=== PATIENT | female | born 1990 | race Caucasian/White ===

== ENCOUNTER 2018-09-05 16:22 | Emergency (ER) | payer BC, OTHER ==
[2018-09-05 16:28] VITALS: BP 110/74; PULSE 77; TEMP 97.9; BMI 19.9
[2018-09-05 17:15] LABS: BASO % 0.5 % (0-2.0); EOS % 6.1 % (0-4.5); HEMOGLOBIN 13.1 GM/dL (10.7-15.3); LYMPH % 45.9 % (8-40); MCH 30.1 pg (25.7-33.7); MCHC 33.6 g/dl (32.0-36.0); MEAN CELL VOLUME 89.7 fl (80-96); MEAN PLT VOLUME 10.2 fl (7.5-11.1); NEUT % 39.5 % (42.8-82.8); PLATELET COUNT 257 K/MM3 (134-434); RBC 4.35 M/mm3 (3.60-5.2); RDW 13.5 % (11.6-15.6); WHITE BLOOD COUNT 5.4 K/mm3 (4.0-10.0)
--- NOTE | 2018-09-05 17:23 | PDOC ---
History of Present Illness - General Chief Complaint: Vaginal Bleeding Stated Complaint: FIVE WEEKS /ABD CRAMPS Time Seen by Provider: 09/05/18 16:36 History Source: Patient Exam Limitations: No Limitations - History of Present Illness Initial Comments: 09/05/18 17:18 Pt is a previously healthy 28yo F at 5 weeks gestation based on LMP presenting to ED for vaginal bleeding. Pt states she has been spotting all week but started bleeding more heavily yesterday. She used 1 tampon yesterday and today. Endorses cramping. Denies abdominal pain, n/v/d, chest pain, lightheadedness, palpitations, sob. She has not seen her OB for this . She took 3 home tests which were all positive. PMD: none OB: Zeb PMH: none Meds: none Allergies: nkda Past History - Past Medical History Allergies/Adverse Reactions: Allergies Allergy/AdvReac Type Severity Reaction Status Date / Time Shellfish Allergy Severe Hives Verified 09/05/18 16:24 No Known Drug Allergies Allergy Verified 09/05/18 16:24 PEANUTS Allergy Severe Hives Uncoded 09/05/18 16:24 Home Medications: Ambulatory Orders Vit 93/Iron Fum/Folic [ Formula Tablet] 1 tab PO DAILY Anemia: Yes Asthma: Yes Cancer: No Cardiac Disorders: No CVA: No COPD: No CHF: No Dementia: No Diabetes: No GI Disorders: Yes (GERD) Disorders: No HTN: No Hypercholesterolemia: Yes Liver Disease: No Seizures: No Thyroid Disease: No - Surgical History Abdominal Surgery: Yes (CYSTS REMOVED FROM BOTH OVARIES) Appendectomy: No Cardiac Surgery: No Cholecystectomy: No Lung Surgery: No Neurologic Surgery: No Orthopedic Surgery: No - Reproductive History Is Patient Now?: Yes (#): 1 Para: 0 Therapeutic (s) & number: No Tubal Ligation: No Spontaneous : 0 - Immunization History Immunization Up to Date: Yes - Suicide/Smoking/Psychosocial Hx Smoking Status: No Smoking History: Never smoked Have you smoked in the past 12 months: No Number of Cigarettes Smoked Daily: 0 Information on smoking cessation initiated: No Drug/Substance Use Hx: No Substance Use Type: None Hx Substance Use Treatment: No Review of Systems - Review of Systems Constitutional: No: Chills, Fever, Weakness HEENTM: No: Symptoms Reported Respiratory: No: Symptoms reported Cardiac (ROS): No: Symptoms Reported ABD/GI: Yes: See HPI, Abdominal cramping. No: Constipated, Diarrhea, Nausea, Vomiting : Yes: Other (vaginal bleeding). No: Burning, Dysuria, Discharge, Frequency Musculoskeletal: No: Back Pain, Joint Pain, Muscle Weakness Integumentary: No: Symptoms Reported Neurological: No: Symptoms reported *Physical Exam - Vital Signs Last Vital Signs Temp Pulse Resp BP Pulse Ox 97.9 F 77 18 110/74 99 09/05/18 16:26 09/05/18 16:26 09/05/18 16:26 09/05/18 16:09/05/18 16:26 - Physical Exam General Appearance: Yes: Nourished, Appropriately Dressed. No: Apparent Distress HEENT: positive: EOMI, AKIRA, Normal ENT Inspection Neck: positive: Trachea midline, Supple Respiratory/Chest: positive: Lungs Clear, Normal Breath Sounds Cardiovascular: positive: Regular Rhythm, Regular Rate Vascular Pulses: Carotid (R): 2+, Carotid (L): 2+, Dorsalis-Pedis (R): 2+, Doralis-Pedis (L): 2+ Female Pelvic Exam: positive: cervical os closed, vaginal bleeding. negative: CMT, adnexal tenderness Gastrointestinal/Abdominal: positive: Normal Bowel Sounds, Soft. negative: Tender Musculoskeletal: negative: CVA Tenderness Extremity: positive: Normal Capillary Refill, Pelvis Stable Integumentary: positive: Normal Color, Dry, Warm Neurologic: positive: instrumentation and controls technician II-XII NML intact, Fully Oriented, Alert, Normal Mood/ Affect, Normal Response, Motor Strength /5 ED Treatment Course - LABORATORY CBC & Chemistry Diagram: 09/05/18 17:03 09/05/18 17:03 - RADIOLOGY Radiology Studies Ordered: Category Date Time Status TRANSVAGINAL US PREG [US] Stat Ultrasound 09/05/18 16:50 Ordered Medical Decision Making - Medical Decision Making 09/05/18 17:21 Pt is a previously healthy 28yo F at 5 weeks gestation based on LMP presenting to ED for vaginal bleeding. Pt states she has been spotting all week but started bleeding more heavily yesterday. She used 1 tampon yesterday and today. Endorses cramping. Denies abdominal pain, n/v/d, chest pain, lightheadedness, palpitations, sob. She has not seen her OB for this . She took 3 home tests which were all positive. Vitals: wnl PE: blood in vaginal vault, closed os by manual exam, no cmt or adnexal tenderness. ddx includes but not limited to ectopic, (missed v. complete v. incomplete v. inevitable), cyst, menstruation, fibroid -cbc, cmp, ts, ua -tvus labs wnl. Bquant 16. UA negative for infection type and screen pending. US: no evidence of IUP. small simple R ovarian cyst. no adnexal masses. Early IUP v. ectopic v. missed depending on t+S pt may need rhogam. pt informed. given us results. pt agrees to plan and verbalizes understanding. Given return precautions. *DC/Admit/Observation/Transfer Diagnosis at time of Disposition: Vaginal bleeding - Discharge Dispostion Disposition: HOME Condition at time of disposition: Good Decision to Admit order: No - Referrals Referrals: Ketan Carrington MD [Staff Physician] - - Patient Instructions Printed Discharge Instructions: DI for Vaginal Bleeding During Additional Instructions: You were seen in the emergency room today for vaginal bleeding. The ultrasound results show an ovarian cyst. There is no evidence of a gestational sac. This could either be due to the fetus not being visualized or a miscarriage. I recommend coming back to the emergency room in 2 days for repeat blood testing. Come back to the emergency room if bleeding gets worse, you have abdominal pain or if any new concerning symptom develops. Thank you - Post Discharge Activity
--- NOTE | 2018-09-05 17:31 | PDOC ---
Documentation entered by Jacqueline Rosado SCRIBE, acting as scribe for Karo Ellis DO. Karo Ellis DO: This documentation has been prepared by the Alonzo johnston Daisy, SCRIBE, under my direction and personally reviewed by me in its entirety. I confirm that the documentation accurately reflects all work, treatment, procedures, and medical decision making performed by me. Attending Attestation - Resident Resident Name: Evette Parker - ED Attending Attestation I have performed the following: I have examined & evaluated the patient, The case was reviewed & discussed with the resident, I agree w/resident's findings & plan - HPI HPI: 09/05/18 16:53 The patient is a 28 YOF with no PMH who presents with vaginal spotting for the past week. She notes the vaginal spotting worsened yesterday and used one tampon. Patient reports she may be 5 weeks based on LMP. Patient had 3 positive home tests, which was also confirmed by her PCP. This is the patient's first . The patient denies abdominal pain, chest pain, shortness of breath, headache and dizziness. Denies fever, chills, nausea, vomit, diarrhea and constipation. Denies dysuria, frequency, urgency and hematuria. Allergies: NKA Past surgical history: None reported. Social history: No reported alcohol, drug or cigarette use. - Physicial Exam PE: 09/05/18 16:58 ADULT PHYSICAL EXAM Constitutional: Awake, alert, oriented. No acute distress. (+) Pale Cardiovascular: (+) Tachycardic. Regular rhythm. S1, S2 regular. Distal pulses are 2+ and symmetric. Pulmonary/Chest: No evidence of respiratory distress. Clear to auscultation bilaterally No wheezing, rales or rhonchi. Abdominal: Soft and non-distended. There is no tenderness. No rebound, guarding or rigidity. No organomegaly. No palpable masses. Good bowel sounds. Pelvic exam: per Dr. Parker. Musculoskeletal: No edema. No cyanosis. No clubbing. Full range of motion in all extremities. Skin: Skin is warm and dry. Neurological: Alert and oriented to person, place, and time. Cranial nerves II -XII are grossly intact. Psychiatric: Good eye contact. Normal interaction, affect and behavior. - Medical Decision Making 09/05/18 17:28 a/p: 28yo female at around 5 weeks gestation from [facility] 07/31 with vaginal spotting all week followed by heavier flow yesterday and today -denies passing clots -no pelvic cramping -no dysuria -no n/v/d -no f/c -no lightheaded or dizziness -concern for threatened ab vs abnl bleeding in the first trimester -will obtain labs, type and screen, tvus -os closed on exam, but blood in the vault -will monitor and reassess 09/05/18 18:43 ovarian cyst and no iup beta 16 will need repeat beta in 2 days for early preg vs miscarriage pending type and screen and ua 09/05/18 18:48 I, Dr. Karo Ellis, DO, attest that this document has been prepared under my direction and personally reviewed by me in its entirety. I further attest, that it accurately reflects all work, treatment, procedures and medical decision -making performed by me.
[2018-09-05 17:42] LABS: ALBUMIN 4.1 g/dl (3.4-5.0); ALK PHOS 87 U/L (45-117); ANION GAP 6 MMOL/L (8-16); BILIRUBIN,TOTAL 0.5 mg/dL (0.2-1); BLOOD UREA NITROGEN 10 mg/dL (7-18); CALCIUM 8.9 mg/dL (8.5-10.1); CHLORIDE 106 mmol/L (98-107); CO2 26 mmol/L (21-32); CREATININE 0.6 mg/dL (0.55-1.3); GLUCOSE,RANDOM 83 mg/dL (74-106); SGOT/AST 12 U/L (15-37); SGPT/ALT 18 U/L (13-61); SODIUM 138 mmol/L (136-145); TOT PROT 7.8 g/dl (6.4-8.2)
[2018-09-05 18:52] LABS: EPI CELLS 2.4 /HPF (0-5/HPF); URINE APPEARANCE CLEAR; URINE BACTERIA 12.3 /hpf (NEGATIVE); URINE BILIRUBIN NEGATIVE (NEGATIVE); URINE CASTS 3 /lpf (0-8); URINE COLOR YELLOW; URINE GLUCOSE (UA) NEGATIVE (NEGATIVE); URINE KETONE NEGATIVE (NEGATIVE); URINE LEUK ESTERASE NEGATIVE (NEGATIVE); URINE NITRITE NEGATIVE (NEGATIVE); URINE PROTEIN NEGATIVE (NEGATIVE); URINE RBC 42 /hpf (0-4); URINE UROBILINOGEN 0.2 mg/dL (0.2-1.0); URINE WBC 1 /hpf (0-5)
--- NOTE | 2018-09-05 20:08 | PDOC ---
*Physical Exam - Vital Signs Last Vital Signs Temp Pulse Resp BP Pulse Ox 97.9 F 77 18 110/74 99 09/05/18 16:26 09/05/18 16:26 09/05/18 16:26 09/05/18 16:26 09/05/18 16:26 ED Treatment Course - LABORATORY CBC & Chemistry Diagram: 09/05/18 17:03 09/05/18 17:03 - ADDITIONAL ORDERS Additional order review: Laboratory Results 09/05/18 09/05/18 09/05/18 17:03 17:03 16:40 Sodium 138 Potassium 4.0 Chloride 106 Carbon Dioxide 26 Anion Gap 6 L BUN 10 Creatinine 0.6 Creat Clearance w eGFR 120.84 Random Glucose 83 Calcium 8.9 Total Bilirubin 0.5 AST 12 L ALT 18 Alkaline Phosphatase 87 Total Protein 7.8 Albumin 4.1 Beta HCG, Quant 16.9 Urine Color Yellow Urine Appearance Clear Urine pH 6.0 Ur Specific [place] 1.015 Urine Protein Negative Urine Glucose (UA) Negative Urine Ketones Negative Urine Blood 3+ H Urine Nitrite Negative Urine Bilirubin Negative Urine Urobilinogen 0.2 Ur Leukocyte Esterase Negative Urine WBC (Auto) 1 Urine RBC (Auto) 42 Urine Casts (Auto) 3 U Epithel Cells (Auto) 2.4 Urine Bacteria (Auto) 12.3 Blood Type O POSITIVE Antibody Screen Negative 09/05/18 17:03 RBC 4.35 MCV 89.7 MCHC 33.6 RDW 13.5 MPV 10.2 Neutrophils % 39.5 L D Lymphocytes % 45.9 H D Monocytes % 8.0 Eosinophils % 6.1 H D Basophils % 0.5 Medical Decision Making - Medical Decision Making 09/05/18 20:07 Type and screen O positive. Ok to dc *DC/Admit/Observation/Transfer Diagnosis at time of Disposition: Vaginal bleeding - Discharge Dispostion Disposition: HOME Condition at time of disposition: Good - Referrals Referrals: Ketan Carrington MD [Staff Physician] - - Patient Instructions Printed Discharge Instructions: DI for Vaginal Bleeding During Additional Instructions: You were seen in the emergency room today for vaginal bleeding. The ultrasound results show an ovarian cyst. There is no evidence of a gestational sac. This could either be due to the fetus not being visualized or a miscarriage. I recommend coming back to the emergency room in 2 days for repeat blood testing. Come back to the emergency room if bleeding gets worse, you have abdominal pain or if any new concerning symptom develops. Thank you - Post Discharge Activity
== END 2018-09-05 20:20 | disposition home or self-care (01) ==
LOC: JER 16:22
DX: O26.891 Other specified pregnancy related conditions, first trimester (principal); O20.8 Other hemorrhage in early pregnancy; O34.81 Maternal care for other abnormalities of pelvic organs, first trimester; N83.291 Other ovarian cyst, right side; Z3A.01 Less than 8 weeks gestation of pregnancy
CPT/HCPCS: 36415; 76817-TC; 80053; 81003; 84702; 85025; 86850; 86900; 86901; 99282-25

== ENCOUNTER 2018-10-20 04:59 | Inpatient (IN) | payer OTHER | END 2018-10-21 10:48 | disposition home or self-care (01) | LOC: JASU-SURG 04:59 → J6S 10-21 00:06 ==

== ENCOUNTER 2018-12-13 10:16 | Day surgery (SDC) | payer OTHER ==
--- NOTE | 2018-12-13 10:58 | HP ---
History & Physical Update - History History: No Change (28yo P0 with early and plateaued serum BHCG. Likely missed Ab vs ectopic . Patient wit septate uterus, s/p recent hysteroscopic metroplasty and dx laparoscopy. Pt is c/o light spotting but is o/ w asymptomatic) - Physical Physical: No Change - Assessment Assessment: No Change Currently as noted:: Missed Ab vs ectopic - Plan Plan: No Change (Suction, D&C.)
[2018-12-13 11:02] VITALS: BMI 19.1
[2018-12-13] MEDS ORDERED: DEXAMETHASONE SOD PHOSPHATE 4 MG/1 ML VIAL ONE (11:13)
[2018-12-13] MEDS ORDERED: LIDOCAINE HCL/PF 2% SDV 5ML VIAL ONE (11:13)
[2018-12-13] MEDS ORDERED: PROPOFOL 20 ML ONE ×2 (11:13)
[2018-12-13] MEDS ORDERED: KETOROLAC TROMETHAMINE 30 MG/1 ML VIAL ONE (11:17)
[2018-12-13] MEDS ORDERED: ceFAZolin SODIUM 1 GM VIAL IVPB ONE ×2 (11:40→11:41)
[2018-12-13] MEDS ORDERED: ceFAZolin SODIUM 1 GM VIAL ONE (11:47)
--- NOTE | 2018-12-13 12:18 | OP ---
Operative Note - Note: Operative Date: 12/13/18 Pre-Operative Diagnosis: Missed Ab vs ectopic Operation: Same Findings: Mild vaginal bleeding at start of procedure. Cervical os closed. Scant endometrial tissue, no definitive POC. Post-Operative Diagnosis: Same as Pre-op Surgeon: Ketan Carrington Anesthesiologist/DISPATCHER TUGBOAT: Vicenta Bonds Anesthesia: General Specimens Removed: POC Estimated Blood Loss (mls): 30 Blood Volume Replaced (mls): 0 Fluid Volume Replaced (mls): 400 Operative Report Dictated: Yes
[2018-12-13] MEDS ORDERED: oxyCODONE HCL 5 MG TABLET PO PRN ×2 (12:32)
[2018-12-13] MEDS ORDERED: ONDANSETRON 4 MG/2 ML VIAL IVPUSH PRN (12:32)
[2018-12-13] MEDS ORDERED: LACTATED RINGERS SOLUTION 1,000 ML IV SCH (12:45)
[2018-12-13] MEDS ORDERED: oxyCODONE HCL 5 MG TABLET ONE (13:40)
[2018-12-13 14:42] VITALS: TEMP 98
[2018-12-13 14:54] VITALS: BP 105/75; PULSE 75
--- NOTE | 2018-12-14 11:53 | PATH ---
Surgical Pathology Report Patient Name: MAN ARI Med. Rec. #: [id number] /Age/Gender: 1990 (Age: 28) / F Account: [id number] Location: [facility] Taken: 12/13/2018 Received: 12/13/2018 Reported: 12/14/2018 Physicians: Ketan Carrington M.D. Specimen(s) Received PRODUCTS OF CONCEPTION Clinical History Early with plateaued BHCG, rule out missed versus ectopic Final Diagnosis PRODUCTS OF CONCEPTION, SUCTION DILATION AND CURETTAGE: GESTATIONAL ENDOMETRIUM AND DECIDUA. NO CHORIONIC VILLI IDENTIFIED. Comment: Suggest clinical correlation. Findings discussed with Dr. Carrington. Electronically Signed Malka Sanchez M.D. Gross Description Received fresh labeled "products of conception," is a 3.5 x 3.0 x 0.3 cm aggregate of lowry red soft tissue fragments. The formalin is filtered. No definite villous tissue or somatic tissue is identified. The specimen is entirely submitted in 3 cassettes. /12/13/2018 saudi/12/13/2018
--- NOTE | 2018-12-14 20:08 | OP ---
DATE OF OPERATION: 12/13/2018 PREOPERATIVE DIAGNOSIS: Uncertain reliability of , patient with a possible missed versus ectopic . POSTOPERATIVE DIAGNOSIS: Uncertain reliability of , patient with a possible missed versus ectopic . PROCEDURE: Suction dilation and curettage, uterine curettage. SURGEON: Ruby Hankins MD ANESTHESIOLOGIST: Vicenta Bonds MD ANESTHESIA: General. COMPLICATIONS: None. ESTIMATED BLOOD LOSS: 30 mL. IV FLUIDS: 400 mL. PATHOLOGY: Endometrial curettings. FINDINGS: Examination under anesthesia revealed a closed cervical os. A small amount of bleeding was noted from the cervix. Uterine appeared to be anteverted, small, and mobile. No pelvic or adnexal masses were noted. Suction curettage revealed a scant amount of endometrial tissue without definitive products of conception. All of the tissue was submitted to Pathology for examination. PROCEDURE: The patient was met preoperatively. Risks, benefits, alternatives of surgery were discussed in detail. All questions were answered. The patient was then brought to the OR with the IV running. She was placed on the surgical table in a supine position. The general anesthesia was achieved without difficulty. The patient was then placed in a dorsal lithotomy position using adjustable Anam stirrups. The patient was examined under anesthesia. The examination revealed a closed cervical os with a small amount of bleeding. The uterus was anteverted and freely mobile within the pelvis. There were no pelvic or adnexal masses noted. The patient was then prepped and draped in the usual sterile fashion. A time-out protocol was done as per standard procedure. A weighed speculum was introduced inside the patient's vagina with good visualization of the cervix. The cervix was grasped with a single-tooth tenaculum. The cervical os was gently dilated to accommodate a size 21 Paulson dilator. A suction curette was introduced inside the uterine cavity. The patient has a known history of septate uterus. Care was taken to carefully evacuate the right and left portions of the uterine cavity. Once the suction was completed, the uterine cavity was explored with the sharp curette. There were no apparent retained products of conception, so the instruments were removed from the patient. The sponge, lap, and instrument counts were correct. Good hemostasis was noted. The patient was returned to supine position. She was then transferred to recovery room in stable condition and awake. RUBY HANKINS M.D. [id number]
== END 2018-12-13 14:55 | disposition home or self-care (01) ==
LOC: JOR 10:16 → JASU-SURG 10:16
PROVIDERS: ATTEND Obstetrics & Gynecology
PROC: 10D17ZZ Extraction of Products of Conception, Retained, Via Natural or Artificial Opening (ICD-10-PCS; principal; 2018-12-13 11:30)
DX: O36.80X0 Pregnancy with inconclusive fetal viability, not applicable or unspecified (principal)
CPT/HCPCS: 86850; 86900; 86901; 88305-TC; 94760

== ENCOUNTER 2019-02-09 12:51 | Day surgery (SDC) | payer OTHER ==
[2019-02-08 15:16] VITALS: BMI 19.1
[2019-02-09 13:45] LABS: INR 1.02 (0.83-1.09)
[2019-02-09 13:48] LABS: ACTIVATED PTT 34.6 SECONDS (25.2-36.5)
[2019-02-09] MEDS ORDERED: MIDAZOLAM HCL 2 MG/2 ML SINGLE DOSE VIAL ONE ×2 (14:30)
--- NOTE | 2019-02-09 14:30 | HP ---
Past Medical History - Primary Care Physician PCP:: Ketan Carrington - Admission Chief Complaint: 29yo P0 with septate uterus and multiple SAB's admitted for hysteroscopy and metroplasty. History of Present Illness: Septate uterus History Source: Patient, Medical Record Limitations to Obtaining History: No Limitations - Past Medical History BODS DEVELOPER: No: Alzheimer's, CVA, Dementia, Migraine, Multiple Sclerosis, Peripheral Neuropathy, Parkinson's, Seizure, Syncope, TIA, Vertigo, Other Cardiovascular: No: AFIB, Aneurysm, Aortic Insufficiency, Aortic Stenosis, CAD, CHF, Deep Vein Thrombosis, HTN, Hyperlipdemia, OH, Mitral Insufficiency, Mitral Stenosis, Murmur, Pulmonary Hypertension, Other Pulmonary: Yes: Asthma Gastrointestinal: Yes: Gastritis, GERD, Peptic Ulcer Disease, Other (Celiac) Hepatobiliary: No: Cirrhosis, Cholelithiasis, Cholecystitis, Choledocholithiasis , Hepatitis A, Hepatitis B, Hepatitis C, Other Renal/: No: Renal Failure, Renal Inusuff, BPH, Cancer, Hematuria, Hemodialysis , Neurogenic Bladder, Renal Calculi, UTI, Other Reproductive: Yes: Other (Uterine septum) ...Spon : 3 Heme/Onc: No: Anemia, B12 Deficiency, Bleeding Disorder, Cancer, Current Chemotherapy, Current Radiation Therapy, Hemochromatosis, Hypercoaguable State, Myeloproliferative Synd, Sickle Cell Disease, Sickle Cell Trait, Thrombocytopenia, Other Infectious Disease: No: AIDS, C-Diff, Herpes Zoster, HIV, MRSA, STD's, Tuberculosis, VREF, Other Psych: No: Addictions, Anxiety, Bipolar, Depression, Panic, Psychosis, Schizophrenia, Other Musculoskeletal: No: Bursitis, Chronic low back pain, Hemiparesis, Hemiplegia, Osteoarthritis, Paraplegia, Other Rheumatology: No: Fibromyalgia, Gout, Lupus, Rheumatoid Arthritis, Sarcoidosis, Vasculitis, Other ENT: No: Allergic Rhinitis, Sinusitis, Other Endocrine: No: Reno's Disease, Ezequiel's Disease, Diabetes Insipidus, Diabetes Mellitus, Hyperparathyroidism, Hyperthyroidism, Hypothyroidism, Osteopenia, SIADH, Other Dermatology: No: Basal Cell, Cellulitis, Eczema, Melanoma, Psoriasis, Squamous Cell, Other - Past Surgical History Hx Myomectomy: No Hx Transabdominal Cerclage: No Additional Surgical History: Hysteroscopy and metroplasty 08/2018, rhinoplasty - Smoking History Smoking history: Never smoked Have you smoked in the past 12 months: No Aproximately how many cigarettes per day: 0 - Alcohol/Substance Use Hx Alcohol Use: No History of Substance Use: reports: None - Social History Usual Living Arrangement: Yes: With Spouse, With Child Do you think of yourself as: Straight/Heterosexual ADL: Independent 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 History of Recent Travel: No Home Medications - Allergies Allergies/Adverse Reactions: Allergies Allergy/AdvReac Type Severity Reaction Status Date / Time Shellfish Allergy Severe Hives Verified 12/13/18 11:08 No Known Drug Allergies Allergy Verified 12/13/18 11:08 PEANUTS Allergy Severe Hives Uncoded 12/13/18 11:08 - Home Medications Home Medications: Ambulatory Orders NK [No Known Home Medication] 02/09/19 Family Medical History Family History: Unremarkable Review of Systems - Review of Systems Constitutional: reports: No Symptoms Eyes: reports: No Symptoms HENT: reports: No Symptoms Neck: reports: No Symptoms Cardiovascular: reports: No Symptoms Respiratory: reports: No Symptoms Gastrointestinal: reports: No Symptoms Genitourinary: reports: No Symptoms Breasts: reports: No Symptoms Reported Musculoskeletal: reports: No Symptoms Integumentary: reports: No Symptoms Neurological: reports: No Symptoms Endocrine: reports: No Symptoms Hematology/Lymphatic: reports: No Symptoms Psychiatric: reports: No Symptoms Pain Intensity: 0 Physical Exam-PRESIDENT AND CEO Vital Signs: Vital Signs Temperature 98.3 F 02/09/19 13:21 Pulse Rate 83 02/09/19 13:21 Respiratory Rate 20 02/09/19 13:21 Blood Pressure 114/74 02/09/19 13:21 O2 Sat by Pulse Oximetry (%) 99 02/09/19 13:22 Constitutional: Yes: Well Nourished, No Distress, Calm Eyes: Yes: WNL, Conjunctiva Clear HENT: Yes: WNL, Atraumatic, Normocephalic Neck: Yes: WNL, Supple, Trachea Midline Cardiovascular: Yes: WNL, Regular Rate and Rhythm Respiratory: Yes: WNL, Regular, CTA Bilaterally Gastrointestinal: Yes: WNL, Normal Bowel Sounds, Soft, Abdomen, Obese ...Rectal Exam: Yes: WNL Renal/: Yes: WNL Pelvis: Yes: WNL External Genitalia: Yes: Normal Internal Exam Deferred: No Vaginal Exam: Yes: Normal Cervix: Yes: Normal Uterus: Yes: Normal Adnexa: Normal: Left, Right Breast(s): Yes: WNL Musculoskeletal: Yes: WNL Extremities: Yes: WNL Integumentary: Yes: WNL Neurological: Yes: WNL, Alert, Oriented ...Motor Strength: WNL Psychiatric: Yes: WNL, Alert, Oriented Imaging - Results Ultrasound: Report Reviewed MRI: Report Reviewed Assessment/Plan 29yo P0 with septate uterus and multiple SAB's admitted for hysteroscopy and metroplasty. We had discussed the risks, benefits, alternatives of surgery at length including but not limited to infection, bleeding, scarring, perforation, amenorrhea, infertility, hysterectomy, etc. The pt verbalized understanding and requested to proceed with surgery. I emphasized that all surgeries have risks and no guarantees can be provided.
[2019-02-09] MEDS ORDERED: PROPOFOL 20 ML ONE ×2 (14:33)
[2019-02-09] MEDS ORDERED: ceFAZolin SODIUM 1 GM VIAL IVPB ONE (14:42)
[2019-02-09] MEDS ORDERED: VASOPRESSIN 20 UNITS/ML VIAL IV ONE (14:54)
--- NOTE | 2019-02-09 15:57 | OP ---
Operative Note - Note: Operative Date: 02/09/19 Pre-Operative Diagnosis: Septate uterus Operation: Hysteroscopic metroplasty Findings: Large/wide midline uterine septum Post-Operative Diagnosis: Same as Pre-op Surgeon: Ketan Carrington Anesthesiologist/TRASH COLLECTOR TRUCK DRIVER: Arlyn Spivey MD Anesthesia: General Estimated Blood Loss (mls): 30 Blood Volume Replaced (mls): 0 Fluid Volume Replaced (mls): 600 (Hysteroscopy deficit ~1400ml) Operative Report Dictated: Yes
[2019-02-09] MEDS ORDERED: ACETAMINOPHEN INJECTION 100 ML IVPB ONE (16:10)
[2019-02-09] MEDS ORDERED: ACETAMINOPHEN 1000 MG/100 ML VIAL (NON FORMULARY) IVPB ONE (16:12)
--- NOTE | 2019-02-09 16:33 | OP ---
DATE OF OPERATION: 02/09/2019 PREOPERATIVE DIAGNOSIS: Septate uterus, habitual aborter. POSTOPERATIVE DIAGNOSIS: Septate uterus, habitual aborter. PROCEDURE: Hysteroscopic metroplasty. SURGEON: Ruby Hankins MD ANESTHESIOLOGIST: Arlyn Spivey MD ANESTHESIA: General. COMPLICATIONS: None. ESTIMATED BLOOD LOSS: 30 mL. INTRAVENOUS FLUIDS: 600 mL. HYSTEROSCOPY FLUID DEFICIT: Approximately 1400 mL of normal saline. PATHOLOGY: None. FINDINGS: Examination under anesthesia revealed a small, anteverted uterus with no pelvic or adnexal masses. Hysteroscopy revealed a septate uterus with a wide septum. Both fallopian tube ostia were visualized and appeared to be within normal limits. The septum extended from the fundus to approximately 1/2 to 2/3 of the uterine length. The entire septum was resected, and a normal uterine cavity was visualized at the end of the procedure. DESCRIPTION OF PROCEDURE: The patient was met preoperatively. Risks, benefits, and alternatives of surgery were discussed in details. All questions were answered. The patient was brought to the OR with the IV running. She was placed on the surgical table in the supine position. The general anesthesia was achieved without difficulty. The patient was then placed in a dorsal lithotomy position using adjustable Anam stirrups. She was examined under anesthesia with the findings as described above. The patient was then prepped and draped in the usual sterile fashion. A time-out was conducted as per standard protocol. A weighted speculum was introduced inside the patient's vagina with good visualization of the cervix. The cervix was grasped with a single-tooth tenaculum. The cervix was injected with a dilute solution of vasopressin circumferentially. The cervical os was dilated to accommodate a size 21 Paulson dilator. An operative hysteroscope was then introduced inside the cervical canal. The uterine cavity was visualized. There was a large, broad-based uterine septum in the midline. The uterine septum was extending from the fundus approximately to care home, maybe 2/3 of the uterine length. Both fallopian tube ostia were visualized. The septum was then resected using a hysteroscopic scissor under direct visualization and without complications. The entire septum was resected to achieve a normally shaped uterine cavity. Good hemostasis was visualized at the end of the procedure. Once the uterine septum was resected, the hysteroscope was removed from the patient. Once again, good hemostasis was noted. Sponge, lap, needle counts were correct. Once again, the hemostasis was confirmed. The patient was then returned to supine position. She was then transferred to recovery room awake and in stable condition. RUBY HANKINS M.D. [id number]
[2019-02-09 18:13] VITALS: TEMP 97.9
[2019-02-09 18:22] VITALS: BP 101/60; PULSE 73
== END 2019-02-09 18:22 | disposition home or self-care (01) ==
LOC: JASU-SURG 12:51
PROVIDERS: ATTEND Obstetrics & Gynecology
PROC: 0UQ Female Reproductive System, Repair (ICD-10-PCS; principal; 2019-02-09 14:00)
DX: Q51.20 Other doubling of uterus, unspecified (principal)
CPT/HCPCS: 36415; 84703; 85610; 85730; 86850; 86900; 86901; 94760; J0131

== ENCOUNTER 2020-04-29 19:30 | Inpatient (IN) | payer OTHER ==
[2020-04-29] MEDS ORDERED: DINOPROSTONE 10 MG VAGINAL SUPPOSITORY VG ONE (20:51)
[2020-04-29] MEDS ORDERED: BUTORPHANOL TARTRATE 1 MG/ML VIAL IVPUSH PRN (20:53)
[2020-04-29] MEDS ORDERED: PROMETHAZINE HCL 25 MG/1 ML VIAL IVPUSH ONE (20:53)
[2020-04-29 20:58] VITALS: BMI 25.4
[2020-04-29 21:43] LABS: BASO % 0.2 % (0-2.0); EOS % 0.9 % (0-4.5); HEMATOCRIT 28.5 % (32.4-45.2); HEMOGLOBIN 9.3 GM/dL (10.7-15.3); LYMPH % 22.8 % (8-40); MCH 26.9 pg (25.7-33.7); MCHC 32.7 g/dl (32.0-36.0); MEAN CELL VOLUME 82.1 fl (80-96); MEAN PLT VOLUME 11.1 fl (7.5-11.1); MONO % 9.4 % (3.8-10.2); NEUT % 66.7 % (42.8-82.8); PLATELET COUNT 202 K/MM3 (134-434); RBC 3.47 M/mm3 (3.60-5.2); RDW 13.6 % (11.6-15.6); WHITE BLOOD COUNT 6.2 K/mm3 (4.0-10.0)
[2020-04-29 21:55] LABS: INR 0.92 (0.83-1.09); PROTHROMBIN TIME (PATIENT) 11.3 SEC (9.7-13.0)
[2020-04-29 21:58] LABS: ACTIVATED PTT 25.3 SECONDS (25.2-36.5)
[2020-04-29 22:01] LABS: POTASSIUM 3.7 mmol/L (3.5-5.1)
[2020-04-29 22:02] LABS: CALCIUM 8.1 mg/dL (8.5-10.1)
[2020-04-29 22:03] LABS: BLOOD UREA NITROGEN 6.3 mg/dL (7-18)
[2020-04-29 22:06] LABS: CREATININE 0.6 mg/dL (0.55-1.3)
[2020-04-29 22:51] LABS: HIV INTERPRETATION NEGATIVE (NEGATIVE)
[2020-04-29] MEDS: DEXTROSE 5%-LACTATED RINGERS 1,000 ML IV SCH (23:19)
[2020-04-30] MEDS ORDERED: BUTORPHANOL TARTRATE 2 MG/ML VIAL ONE (07:23)
[2020-04-30] MEDS ORDERED: PROMETHAZINE HCL 25 MG/1 ML VIAL ONE (07:24)
[2020-04-30] MEDS ORDERED: OXYTOCIN 30 UNITS in 0.9% NS 30 UNIT/500 ML INFUS.BAG IVPB SCH (09:15)
[2020-04-30] MEDS ORDERED: OXYTOCIN 30 UNITS in 0.9% NS 30 UNIT/500 ML INFUS.BAG IVPB ONE (09:15)
[2020-04-30] MEDS ORDERED: PCA PUMP NR ONE (12:17)
[2020-04-30] MEDS ORDERED: FENTANYL/BUPIVACAINE/NS/PF - PCEA - 50 ML DISP.SYRIN EP ONE (12:17)
[2020-04-30] MEDS ORDERED: BUPIVACAINE HCL/PF 0.25% (2.5MG/ML) 10 ML VIAL ONE (12:26)
[2020-04-30] MEDS: ELECTROLYTE-148 SOLN 1,000 ML IV SCH ×2 (12:30→14:00)
[2020-04-30] MEDS ORDERED: NALOXONE HCL 0.4 MG/ML VIAL IVPUSH PRN (13:09)
[2020-04-30] MEDS ORDERED: FENTANYL/BUPIVACAINE/NS/PF - PCEA - 50 ML DISP.SYRIN EP SCH (13:15)
[2020-04-30] MEDS ORDERED: LIDOCAINE HCL 1% PRESERVATIVE FREE - 30ML VIAL ONE (15:40)
[2020-04-30] MEDS ORDERED: OXYTOCIN 20 UNITS in 0.9% NS 20 UNIT/1,000 ML INFUS.BAG IV ONE (15:40)
[2020-04-30] MEDS ORDERED: WITCH HAZEL 50% (TUCKS) 40 PAD/JAR PAD TP PRN (17:41)
[2020-04-30] MEDS ORDERED: METHYLERGONOVINE MALEATE 0.2 MG/1 ML AMP IM PRN (17:41)
[2020-04-30] MEDS ORDERED: BENZOCAINE 28 GM HEMORRHOIDAL OINTMENT TP PRN (17:41)
[2020-04-30] MEDS ORDERED: BISACODYL 10 MG SUPP.RECT RC PRN (17:41)
[2020-04-30] MEDS ORDERED: BENZOCAINE 20% 57 GM BOTTLE TP PRN (17:41)
[2020-04-30] MEDS ORDERED: OXYTOCIN 20 UNITS in 0.9% NS 20 UNIT/1,000 ML INFUS.BAG IV SCH (17:45)
[2020-04-30] MEDS: ACETAMINOPHEN 325 MG TABLET (FP) PO PRN (17:50)
[2020-04-30] MEDS: IBUPROFEN 600 MG TABLET (FP) PO PRN (17:50)
[2020-04-30] MEDS: DEXTROSE 5%-LACTATED RINGERS 1,000 ML IV SCH (21:06)
[2020-05-01] MEDS: ACETAMINOPHEN 325 MG TABLET (FP) PO PRN ×2 (02:29→18:15)
[2020-05-01] MEDS: IBUPROFEN 600 MG TABLET (FP) PO PRN ×2 (02:29→18:14)
[2020-05-01 06:13] LABS: BASO % 0.5 % (0-2.0); EOS % 0.9 % (0-4.5); HEMATOCRIT 23.9 % (32.4-45.2); HEMOGLOBIN 7.9 GM/dL (10.7-15.3); LYMPH % 18.4 % (8-40); MCHC 32.9 g/dl (32.0-36.0); MEAN CELL VOLUME 81.9 fl (80-96); MEAN PLT VOLUME 10.1 fl (7.5-11.1); MONO % 7.6 % (3.8-10.2); NEUT % 72.6 % (42.8-82.8); PLATELET COUNT 171 K/MM3 (134-434); RBC 2.91 M/mm3 (3.60-5.2); RDW 13.5 % (11.6-15.6); WHITE BLOOD COUNT 9.8 K/mm3 (4.0-10.0)
[2020-05-01] MEDS: PRENATAL VITAMINS W/ FOLIC ACID TABLET (FP) PO SCH (10:00)
[2020-05-01] MEDS ORDERED: SENNOSIDES/DOCUSATE COMBO (SENNA PLUS) TABLET (UD) PO PRN (22:00)
[2020-05-02 08:57] LABS: BASO % 0.4 % (0-2.0); EOS % 2.5 % (0-4.5); HEMATOCRIT 24.9 % (32.4-45.2); HEMOGLOBIN 8.2 GM/dL (10.7-15.3); LYMPH % 19.5 % (8-40); MCH 27.2 pg (25.7-33.7); MCHC 33.1 g/dl (32.0-36.0); MEAN CELL VOLUME 82.3 fl (80-96); MEAN PLT VOLUME 10.6 fl (7.5-11.1); MONO % 5.5 % (3.8-10.2); NEUT % 72.1 % (42.8-82.8); PLATELET COUNT 193 K/MM3 (134-434); RBC 3.02 M/mm3 (3.60-5.2); RDW 13.9 % (11.6-15.6)
[2020-05-02] MEDS: ACETAMINOPHEN 325 MG TABLET (FP) PO PRN (09:51)
[2020-05-02] MEDS: PRENATAL VITAMINS W/ FOLIC ACID TABLET (FP) PO SCH (09:51)
[2020-05-02] MEDS: IBUPROFEN 600 MG TABLET (FP) PO PRN (09:51)
[2020-05-02 11:23] VITALS: BP 126/70; PULSE 88; TEMP 98.2
== END 2020-05-02 13:15 | disposition home or self-care (01) | DRG 560 ==
LOC: JLDR 19:30 → J3W 04-30 19:43
PROVIDERS: ADMIT Obstetrics & Gynecology; ATTEND Obstetrics & Gynecology
PROC: 3E0P7VZ Introduction of Hormone into Female Reproductive, Via Natural or Artificial Opening (ICD-10-PCS; 2020-04-29)
PROC: 10E0XZZ Delivery of Products of Conception, External Approach (ICD-10-PCS; principal; 2020-04-30)
PROC: 0KQM0ZZ Repair Perineum Muscle, Open Approach (ICD-10-PCS; 2020-04-30)
DX: O48.0 Post-term pregnancy (principal); O70.1 Second degree perineal laceration during delivery; O99.02 Anemia complicating childbirth; O75.89 Other specified complications of labor and delivery; K90.0 Celiac disease; K21.9 Gastro-esophageal reflux disease without esophagitis; Z87.11 Personal history of peptic ulcer disease; Z3A.40 40 weeks gestation of pregnancy; Z37.0 Single live birth
CPT/HCPCS: 36415; 59409; 80048; 85025; 85610; 85730; 86780; 86850; 86900; 86901; 87389